=== PATIENT | female | born 1950 | race Asian ===

== ENCOUNTER 2021-09-29 11:20 | Inpatient (IN) | payer MEDICAID, MEDICARE, OTHER ==
[~2021-09-29] VITALS: Ht 162.6 cm; Wt 121.6 kg
[~2021-09-29 11:20] MED LIST: ALLO100T PO; LEVO112T7 PO; LISI-186 PO; RIVA20TA PO; SIMV-43 PO
[2021-09-29] MEDS ORDERED: ACETAMINOPHEN 325MG TABLET PO STA (11:54)
[2021-09-29] MEDS ORDERED: PIPERACILLIN/TAZ 3.375G PREMIX 50 ML IV ONE (12:00)
[2021-09-29] MEDS ORDERED: SODIUM CHLORIDE 0.9% 1000ML BAG (SEPSIS BOLUS) IV ONE (12:00)
[2021-09-29] MEDS ORDERED: VANCOMYCIN 1G PREMIX 200 ML IV ONE (12:00)
[2021-09-29 12:26] LABS: HEMOGLOBIN. 11.2 g/dL (12.0-16.0); MEAN CORPUSCULAR HEMOGLOBIN 30.7 pg (28.0-32.0); MEAN CORPUSCULAR VOLUME 90.9 fL (81.0-99.0); MEAN PLATELET VOLUME 9.4 fl (7.4-10.4); PLATELET 206 x1000/uL (130-400); RED BLOOD CELL COUNT 3.64 mill/uL (4.2-5.4); RED CELL DISTRIBUTION WIDTH 16.2 % (11.6-14.6)
[2021-09-29 12:34] LABS: INR 1.2; PROTHROMBIN TIME 12.6 sec (9.6-11.0)
[2021-09-29 12:41] LABS: CHLORIDE 102 mEq/L (98-107)
[2021-09-29 13:34] LABS: PLATELET ESTIMATE NORMAL
[2021-09-29 13:39] LABS: CLARITY URINE CLEAR (CLEAR); COLOR URINE YELLOW (YELLOW); KETONES URINE NEGATIVE (NEGATIVE); LEUKOCYTE ESTERASE URINE NEGATIVE (NEGATIVE); NITRITE URINE NEGATIVE (NEGATIVE); OCCULT BLOOD URINE 1+ (NEGATIVE); PH URINE 5.5 (4.5-8.0); PROTEIN URINE TRACE (NEGATIVE); SPECIFIC GRAVITY URINE 1.009 (1.005-1.030)
[2021-09-30 04:30] VITALS: BP 128/61
[2021-09-30] MEDS ORDERED: APIX5TAB PO (05:26)
[2021-09-30] MEDS ORDERED: DOCUSATE SODIUM 100MG CAPSULE PO PRN (06:30)
[2021-09-30] MEDS ORDERED: ACETAMINOPHEN 650MG/20.3ML UDC GT PRN (06:30)
[2021-09-30] MEDS ORDERED: ZOLPIDEM TARTRATE 5MG TABLET PO PRN (06:30)
[2021-09-30] MEDS ORDERED: PIPERACILLIN/TAZ 3.375G PREMIX 50 ML IV SCH (06:30)
[2021-09-30] MEDS ORDERED: MAGNESIUM/ALUMINUM HYDROXIDE/SIMETHICONE 30ML UDC PO PRN (06:30)
[2021-09-30] MEDS: PIPERACILLIN/TAZOBACTAM 3.375G in DEXT 5% WATER 50ML IV SCH ×3 (07:30→22:21)
[2021-09-30 08:00] VITALS: BP 118/72
[2021-09-30] MEDS: LEVOTHYROXINE SODIUM 112MCG TABLET PO SCH (10:06)
[2021-09-30] MEDS: LISINOPRIL 5MG TABLET PO SCH (10:07)
[2021-09-30] MEDS: APIXABAN 5 MG TABLET PO SCH ×2 (10:07→17:33)
[2021-09-30] MEDS: ALLOPURINOL 100 MG TABLET PO SCH (10:08)
[2021-09-30] MEDS: ACETAMINOPHEN 325MG TABLET PO PRN ×2 (10:53→20:44)
[2021-09-30 12:00] VITALS: BP 113/65
[2021-09-30 12:04] LABS: HEMATOCRIT. 32.6 % (36.0-48.0); HEMOGLOBIN. 10.7 g/dL (12.0-16.0); MEAN CORPUSCULAR HEMOGLOBIN 30.4 pg (28.0-32.0); MEAN CORPUSCULAR VOLUME 92.4 fL (81.0-99.0); MEAN PLATELET VOLUME 9.4 fl (7.4-10.4); PLATELET 218 x1000/uL (130-400); RED BLOOD CELL COUNT 3.53 mill/uL (4.2-5.4); RED CELL DISTRIBUTION WIDTH 16.2 % (11.6-14.6)
[2021-09-30] MEDS: VANCOMYCIN 1GM PMX (XELLIA) 200 ML IV SCH (15:18)
[2021-09-30 16:00] VITALS: BP_SYST 113; BP_SYST 118; BP_DIAS 72; BP_DIAS 76
[2021-09-30 20:00] VITALS: BP 111/51
[2021-09-30] MEDS: ATORVASTATIN CALCIUM 10MG TABLET PO SCH (20:44)
[2021-09-30 23:24] LABS: PLATELET ESTIMATE NORMAL
[2021-10-01] VITALS: BP 115/56
[2021-10-01] MEDS: ACETAMINOPHEN 325MG TABLET PO PRN ×3 (03:29→15:48)
[2021-10-01 04:00] VITALS: BP 110/59
[2021-10-01] MEDS: PIPERACILLIN/TAZOBACTAM 3.375G in DEXT 5% WATER 50ML IV SCH ×3 (05:06→20:44)
[2021-10-01 08:00] VITALS: BP 119/69
[2021-10-01] MEDS: LEVOTHYROXINE SODIUM 112MCG TABLET PO SCH (09:25)
[2021-10-01] MEDS: VANCOMYCIN 1GM PMX (XELLIA) 200 ML IV SCH (09:25)
[2021-10-01] MEDS: MUPIROCIN 2% OINT 15GM TOP SCH (09:25)
[2021-10-01] MEDS: ALLOPURINOL 100 MG TABLET PO SCH (09:30)
[2021-10-01] MEDS: APIXABAN 5 MG TABLET PO SCH ×2 (09:30→17:53)
[2021-10-01] MEDS: LISINOPRIL 5MG TABLET PO SCH (09:30)
[2021-10-01 12:00] VITALS: BP 107/57
[2021-10-01] MEDS ORDERED: AMOX1TAB16 MT ×2 (14:18)
[2021-10-01] MEDS ORDERED: SULF1TAB48 MT ×2 (14:18)
[2021-10-01 15:45] LABS: HEMATOCRIT. 31.6 % (36.0-48.0); HEMOGLOBIN. 10.4 g/dL (12.0-16.0); MEAN CORPUSCULAR HEMOGLOBIN 30.3 pg (28.0-32.0); MEAN CORPUSCULAR VOLUME 92.3 fL (81.0-99.0); MEAN PLATELET VOLUME 9.2 fl (7.4-10.4); PLATELET 252 x1000/uL (130-400); RED BLOOD CELL COUNT 3.42 mill/uL (4.2-5.4); RED CELL DISTRIBUTION WIDTH 16.5 % (11.6-14.6)
[2021-10-01 16:00] VITALS: BP 127/66
[2021-10-01 16:50] LABS: PLATELET ESTIMATE NORMAL
[2021-10-01 20:00] VITALS: BP 99/54
[2021-10-01] MEDS: ATORVASTATIN CALCIUM 10MG TABLET PO SCH (20:44)
[2021-10-02] VITALS: BP 151/72
[2021-10-02 04:00] VITALS: BP 130/70
[2021-10-02] MEDS: PIPERACILLIN/TAZOBACTAM 3.375G in DEXT 5% WATER 50ML IV SCH ×2 (05:24→14:43)
[2021-10-02 07:32] LABS: HEMATOCRIT. 32.7 % (36.0-48.0); HEMOGLOBIN. 10.7 g/dL (12.0-16.0); MEAN CORPUSCULAR HEMOGLOBIN 30.4 pg (28.0-32.0); MEAN CORPUSCULAR VOLUME 92.8 fL (81.0-99.0); MEAN PLATELET VOLUME 9.1 fl (7.4-10.4); PLATELET 285 x1000/uL (130-400); RED BLOOD CELL COUNT 3.53 mill/uL (4.2-5.4); RED CELL DISTRIBUTION WIDTH 16.3 % (11.6-14.6)
[2021-10-02 08:00] VITALS: BP 109/64
[2021-10-02] MEDS: ACETAMINOPHEN 325MG TABLET PO PRN ×2 (08:56→20:17)
[2021-10-02] MEDS: APIXABAN 5 MG TABLET PO SCH ×2 (08:56→17:32)
[2021-10-02] MEDS: LISINOPRIL 5MG TABLET PO SCH (08:57)
[2021-10-02] MEDS: LEVOTHYROXINE SODIUM 112MCG TABLET PO SCH (08:57)
[2021-10-02] MEDS: ALLOPURINOL 100 MG TABLET PO SCH (08:57)
[2021-10-02] MEDS: MUPIROCIN 2% OINT 15GM TOP SCH (08:58)
[2021-10-02] MEDS: VANCOMYCIN 1GM PMX (XELLIA) 200 ML IV SCH (10:35)
[2021-10-02 11:47] VITALS: BP 84/50
[2021-10-02] MEDS ORDERED: SODIUM CHLORIDE 0.9% 500 ML IV ONE (12:30)
[2021-10-02 12:44] LABS: PLATELET ESTIMATE NORMAL
[2021-10-02 16:00] VITALS: BP 100/60
[2021-10-02] MEDS: MEROPENEM 1,000 MG in SODIUM CHLORIDE 0.9% 100 ML IV SCH (18:23)
[2021-10-02 20:00] VITALS: BP 113/65
[2021-10-02] MEDS: ATORVASTATIN CALCIUM 10MG TABLET PO SCH (20:17)
[2021-10-03] VITALS: BP 116/71
[2021-10-03] MEDS: MEROPENEM 1,000 MG in SODIUM CHLORIDE 0.9% 100 ML IV SCH (02:13)
[2021-10-03 04:00] VITALS: BP 148/69
[2021-10-03 06:24] LABS: HEMATOCRIT. 31.5 % (36.0-48.0); HEMOGLOBIN. 10.4 g/dL (12.0-16.0); MEAN CORPUSCULAR HEMOGLOBIN 30.4 pg (28.0-32.0); MEAN PLATELET VOLUME 8.9 fl (7.4-10.4); PLATELET 281 x1000/uL (130-400); RED BLOOD CELL COUNT 3.43 mill/uL (4.2-5.4); RED CELL DISTRIBUTION WIDTH 16.4 % (11.6-14.6)
[2021-10-03] MEDS: LEVOTHYROXINE SODIUM 112MCG TABLET PO SCH (08:52)
[2021-10-03] MEDS: APIXABAN 5 MG TABLET PO SCH (08:52)
[2021-10-03] MEDS: ALLOPURINOL 100 MG TABLET PO SCH (08:54)
[2021-10-03] MEDS: LISINOPRIL 5MG TABLET PO SCH (08:54)
[2021-10-03 12:00] VITALS: BP 110/68
[2021-10-03 16:00] VITALS: BP 100/56
[2021-10-03 20:00] VITALS: BP 112/71
[2021-10-03] MEDS: ATORVASTATIN CALCIUM 10MG TABLET PO SCH (20:39)
[2021-10-04] VITALS: BP 113/69
[2021-10-04] MEDS: MEROPENEM 1,000 MG in SODIUM CHLORIDE 0.9% 100 ML IV SCH ×3 (01:25→18:00)
[2021-10-04 04:00] VITALS: BP 114/82
[2021-10-04 08:00] VITALS: BP 119/71
[2021-10-04] MEDS: ACETAMINOPHEN 325MG TABLET PO PRN ×2 (08:11→21:53)
[2021-10-04] MEDS: LEVOTHYROXINE SODIUM 112MCG TABLET PO SCH (08:12)
[2021-10-04] MEDS: ALLOPURINOL 100 MG TABLET PO SCH (08:12)
[2021-10-04] MEDS: APIXABAN 5 MG TABLET PO SCH ×2 (08:12→16:41)
[2021-10-04] MEDS: LISINOPRIL 5MG TABLET PO SCH (08:12)
[2021-10-04] MEDS: VANCOMYCIN 1GM PMX (XELLIA) 200 ML IV SCH (08:12)
[2021-10-04] MEDS: MUPIROCIN 2% OINT 15GM TOP SCH (08:13)
[2021-10-04 12:00] VITALS: BP 107/55
[2021-10-04 12:20] LABS: PLATELET ESTIMATE NORMAL
[2021-10-04 16:00] VITALS: BP 122/64
[2021-10-04 20:43] VITALS: BP 148/73
[2021-10-04] MEDS: ATORVASTATIN CALCIUM 10MG TABLET PO SCH (21:53)
[2021-10-04 21:57] LABS: HEMATOCRIT. 33.1 % (36.0-48.0); MEAN CORPUSCULAR HEMOGLOBIN 30.7 pg (28.0-32.0); MEAN CORPUSCULAR VOLUME 91.9 fL (81.0-99.0); PLATELET 417 x1000/uL (130-400); RED CELL DISTRIBUTION WIDTH 16.3 % (11.6-14.6)
[2021-10-04 22:16] LABS: CHLORIDE 110 mEq/L (98-107)
[2021-10-04 22:28] LABS: PLATELET ESTIMATE INCREASED
[2021-10-05 00:19] VITALS: BP 139/68
[2021-10-05] MEDS: MEROPENEM 1,000 MG in SODIUM CHLORIDE 0.9% 100 ML IV SCH ×3 (01:48→18:10)
[2021-10-05 08:00] VITALS: BP 125/62
[2021-10-05] MEDS: VANCOMYCIN 1GM PMX (XELLIA) 200 ML IV SCH (09:00)
[2021-10-05] MEDS: LISINOPRIL 5MG TABLET PO SCH (09:00)
[2021-10-05] MEDS: ALLOPURINOL 100 MG TABLET PO SCH (09:00)
[2021-10-05] MEDS: APIXABAN 5 MG TABLET PO SCH ×2 (09:00→17:36)
[2021-10-05] MEDS: LEVOTHYROXINE SODIUM 112MCG TABLET PO SCH (09:00)
[2021-10-05] MEDS: MUPIROCIN 2% OINT 15GM TOP SCH (09:00)
[2021-10-05 12:00] VITALS: BP 112/54
[2021-10-05 16:00] VITALS: BP 126/80
[2021-10-05 20:00] VITALS: BP 131/77
[2021-10-05] MEDS: ATORVASTATIN CALCIUM 10MG TABLET PO SCH (21:25)
[2021-10-05] MEDS: ACETAMINOPHEN 325MG TABLET PO PRN (22:16)
[2021-10-06] VITALS: BP 129/79
[2021-10-06] MEDS: MEROPENEM 1,000 MG in SODIUM CHLORIDE 0.9% 100 ML IV SCH ×3 (02:41→18:19)
[2021-10-06 04:00] VITALS: BP 113/61
[2021-10-06] MEDS: LEVOTHYROXINE SODIUM 112MCG TABLET PO SCH (08:47)
[2021-10-06] MEDS: LISINOPRIL 5MG TABLET PO SCH (08:51)
[2021-10-06] MEDS: ALLOPURINOL 100 MG TABLET PO SCH (08:52)
[2021-10-06] MEDS: APIXABAN 5 MG TABLET PO SCH ×2 (08:52→18:19)
[2021-10-06] MEDS: MUPIROCIN 2% OINT 15GM TOP SCH (09:04)
[2021-10-06] MEDS: ACETAMINOPHEN 325MG TABLET PO PRN ×2 (09:37→18:19)
[2021-10-06 12:00] VITALS: BP 114/69
[2021-10-06 16:00] VITALS: BP 122/76
[2021-10-06 16:46] VITALS: BP 140/78
== END 2021-10-06 20:51 | DRG 862 ==
LOC: ER 11:20 → EDBEDREQTM 12:56 → EDBEDREQSVC 12:56 → EDBEDREQ 20:22 → EDBEDREQTM 20:22 → ENRESERV 09-30 02:02 → 7WST 09-30 04:42
PROVIDERS: ADMIT Internal Medicine Pulmonary Disease; ATTEND Internal Medicine Pulmonary Disease
DX: T81.49XA Infection following a procedure, other surgical site, initial encounter (principal); E43 Unspecified severe protein-calorie malnutrition; N17.0 Acute kidney failure with tubular necrosis; E87.1 Hypo-osmolality and hyponatremia; Z68.42 Body mass index [BMI] 45.0-49.9, adult; K86.1 Other chronic pancreatitis; T81.44XA Sepsis following a procedure, initial encounter; I48.91 Unspecified atrial fibrillation; D64.9 Anemia, unspecified; K43.9 Ventral hernia without obstruction or gangrene; I25.10 Atherosclerotic heart disease of native coronary artery without angina pectoris; J45.909 Unspecified asthma, uncomplicated; I11.9 Hypertensive heart disease without heart failure; K57.90 Diverticulosis of intestine, part unspecified, without perforation or abscess without bleeding; K59.00 Constipation, unspecified; Z88.6 Allergy status to analgesic agent; Z95.0 Presence of cardiac pacemaker
CPT/HCPCS: 36415; 71045; 74176; 80048; 80053; 80202; 81003; 82962; 83605; 84145; 84443; 84484; 85025; 93005; 97162; 97166; 97530; 97535; 99291; C1893; J2185; J2543; J3370; J7030; J7050; J7060

== ENCOUNTER 2024-08-09 18:04 | Emergency (ER) | payer OTHER, MEDICAID ==
[~2024-08-09] VITALS: Ht 167.6 cm; Wt 110.0 kg
[~2024-08-09 18:04] MED LIST changes: +APIX5TAB PO
[2024-08-09 18:08] VITALS: O2SAT 98
[2024-08-09 19:29] LABS: BASOPHILS % 0.5 % (0.0-2.0); DIFFERENTIAL COMMENT 0; EOSINOPHILS % 2.6 % (0.0-5.0); HEMATOCRIT. 27.6 % (36.0-48.0); HEMOGLOBIN. 9.3 g/dL (12.0-16.0); LYMPHOCYTES % 12.7 % (20.0-50.0); MEAN CORPUSCULAR HEMOGLOBIN 34.3 pg (28.0-32.0); MEAN CORPUSCULAR HGB CONC 33.5 g/dL (31.0-37.0); MEAN CORPUSCULAR VOLUME 102.3 fL (81.0-99.0); MEAN PLATELET VOLUME 9.4 fl (7.4-10.4); MONOCYTES % 6.7 % (2.0-8.0); NEUTROPHILS % 77.5 % (40.0-76.0); PLATELET 111 x1000/uL (130-400); RED CELL DISTRIBUTION WIDTH 19.4 % (11.6-14.6); WHITE BLOOD COUNT 3.1 x1000/uL (4.5-11.0)
[2024-08-09 19:34] LABS: CHLORIDE 103 mEq/L (98-107); POTASSIUM 3.9 mEq/L (3.5-5.1); SODIUM 137 mEq/L (136-145)
[2024-08-09 19:35] LABS: CALCIUM 9.5 mg/dL (8.7-10.4); CARBON DIOXIDE 22 mEq/L (21-32)
[2024-08-09 19:38] LABS: INR 1.1
[2024-08-09 19:40] LABS: CREATININE 2.1 mg/dL (0.6-1.0); GLUCOSE 97 mg/dL (70-105)
[2024-08-09 19:41] LABS: UREA NITROGEN BLOOD 39 mg/dL (9-23)
[2024-08-09 19:42] LABS: ALANINE AMINOTRANSFERASE 12 IU/L (10-49); ALBUMIN 4.3 g/dL (3.2-4.8); ASPARTATE AMINOTRANSFERASE 40 IU/L (<34); BILIRUBIN DIRECT 0.7 mg/dL (<=3.0)
[2024-08-09 19:43] LABS: BILIRUBIN TOTAL 1.1 mg/dL (0.1-1.0); PROTEIN TOTAL 7.9 g/dL (6.0-8.3)
[2024-08-09] MEDS: PANTOPRAZOLE SODIUM 40 MG/VIAL IV STA (20:19)
[2024-08-09] MEDS: SODIUM CHLORIDE 0.9% 1,000 ML IV ONE (20:20)
[2024-08-09 20:22] LABS: CLARITY URINE CLOUDY (CLEAR); COLOR URINE RED (YELLOW); GLUCOSE URINE NEGATIVE (NEGATIVE); KETONES URINE NEGATIVE (NEGATIVE); LEUKOCYTE ESTERASE URINE 1+ (NEGATIVE); NITRITE URINE NEGATIVE (NEGATIVE); OCCULT BLOOD URINE 3+ (NEGATIVE); PROTEIN URINE 3+ (NEGATIVE); SPECIFIC GRAVITY URINE 1.011 (1.005-1.030); UROBILINOGEN URINE 0.2 E.U./dL (0.2-1.0)
[2024-08-09 20:37] LABS: BACTERIA URINE 1+; RBC URINE TNTC /hpf (0-2); SQUAMOUS EPITHELIAL CELL URINE 1+ /lpf (RARE/1+)
[2024-08-09] MEDS: CEFTRIAXONE 1GM/50ML 50 ML IV SCH (22:18)
[2024-08-09 23:19] VITALS: BP 116/58; PULSE 65; RESP 21; TEMP 36.4; O2SAT 99
== END 2024-08-10 00:10 | disposition short-term general hospital (02) ==
LOC: ER 18:04 → EDBEDREQ 19:09 → ER 08-10 00:10
DX: K62.5 Hemorrhage of anus and rectum (principal); J45.909 Unspecified asthma, uncomplicated; I48.91 Unspecified atrial fibrillation; I10 Essential (primary) hypertension; I25.10 Atherosclerotic heart disease of native coronary artery without angina pectoris; Z79.01 Long term (current) use of anticoagulants; Z79.899 Other long term (current) drug therapy; Z96.641 Presence of right artificial hip joint; Z90.710 Acquired absence of both cervix and uterus; Z88.6 Allergy status to analgesic agent
CPT/HCPCS: 99285; 74176; 96365; 96366; 96375; 80076; 80048; 81003; 83690; 85025; 85610; 85730; 86850; 86900; 86901; 36415; J0696; J2470; J7030; 96361; 96374